=== PATIENT | male | born 1985 | race Caucasian/White ===

== ENCOUNTER 2018-09-16 14:28 | Emergency (ER) | payer OTHER ==
[~2018-09-16] VITALS: Ht 182.9 cm; Wt 81.6 kg
--- NOTE | 2018-09-16 14:40 | NUR ---
HERE FOR MED CLEARANCE FOR BOOKING, PT NOT SPEAKING AND NOT COOPERATIVE. PT BROUGHT IN BY [employer] OFFICERS. OFFICERS STS THAT FOUND PT " BANGING " HIS HEAD ON THE WALL. PT EYES OPEN, RR EVEN & UNLABORED, NO RESP DISTRESS NOTED. NAD NOTED @ THIS TIME. PT SEEN & EVAL'D BY MAURICIO JAY. OFFICERS @ BS & WILL CONT TO MONITOR.
[2018-09-16 14:56] LABS: BASOPHILS # (AUTO) 0.1 /CMM (0.0-0.2); BASOPHILS % (AUTO) 0.6 % (0.0-2.0); EOSINOPHILS % (AUTO) 0.3 % (0.0-6.0); HEMATOCRIT 41 % (39-51); LYMPHOCYTES # (AUTO) 1.4 /CMM (0.8-4.8); LYMPHOCYTES % (AUTO) 15.6 % (20.0-44.0); MEAN CORPUSCULAR HGB CONC 35 g/dl (31.0-36.0); MEAN CORPUSCULAR VOLUME 94 fL (80-96); MONOCYTES # (AUTO) 0.8 /CMM (0.1-1.30); NEUTROPHILS # (AUTO) 6.5 /CMM (1.8-8.9); NEUTROPHILS % (AUTO) 74.5 % (43.0-81.0); PLATELET COUNT (AUTO) 204 /CMM (150-450); RED BLOOD CELL COUNT(AUTO) 4.34 MIL/uL (4.5-6.0); WHITE BLOOD COUNT (AUTO) 8.7 K/uL (4.3-11.0)
[2018-09-16] MEDS ORDERED: OLANZAPINE 10 MG VIAL IM ONE ×3 (15:00→16:00)
[2018-09-16 15:07] LABS: CALCIUM, SERUM 9.9 mg/dL (8.5-10.1); CARBON DIOXIDE 25 mmol/L (21-32); CHLORIDE 105 mmol/L (98-107); CREATININE 1.2 mg/dL (0.6-1.3); GLUCOSE 96 mg/dL (74-106); POTASSIUM 3.5 mmol/L (3.5-5.1); SODIUM SERUM 139 mmol/L (136-145); UREA NITROGEN, BLOOD 16 mg/dL (7-18)
[2018-09-16 15:13] LABS: ALANINE AMINOTRANSFERASE 33 U/L (12-78); ALBUMIN 4.2 g/dL (3.4-5.0); ALCOHOL, BLOOD < 3 mg/dL (0-0); ALKALINE PHOSPHATASE 50 U/L (46-116); ASPARTATE AMINOTRANSFERASE 50 U/L (15-37); BILIRUBIN,DIRECT 0.3 mg/dL (0.0-0.2); BILIRUBIN,TOTAL 1.5 mg/dL (0.2-1.0); TOTAL PROTEIN, SERUM 7.2 g/dL (6.4-8.2)
[2018-09-16 15:15] LABS: ACETAMINOPHEN < 2 ug/ml (10-30); SALICYLATE < 2.8 mg/dL (2.8-20.0)
[2018-09-16 15:18] LABS: APPEARANCE,URINE Clear (CLEAR); BILIRUBIN,URINE Negative (NEGATIVE); BLOOD, URINE Negative Ery/uL (NEGATIVE); COLOR,URINE Yellow (YELLOW); KETONES,URINE Negative (NEGATIVE); LEUKOCYTE ESTERASE ,URINE Negative (NEGATIVE); NITRITE, URINE Negative (NEGATIVE); PROTEIN,URINE Negative (NEGATIVE); UGLUCOSE Negative (NEGATIVE); UROBILINOGEN,URINE 0.2 EU/dL (0.2)
--- NOTE | 2018-09-16 15:20 | NUR ---
MEDICATED PER MISTY, STAFF HOME THERAPY RN ORDER.
--- NOTE | 2018-09-16 15:24 | NUR ---
PT TO CT VIA [facility].
[2018-09-16] MEDS ORDERED: TDAP [DIPH/PERTUSSIS/TET] 0.5 ML VIAL IM ONE ×2 (15:30→17:00)
[2018-09-16] MEDS ORDERED: LORAZEPAM INJ 2 MG/ML VIAL IM ONE (16:00)
[2018-09-16] MEDS ORDERED: LORAZEPAM INJ 2 MG/ML VIAL ONE (17:00)
[2018-09-16] MEDS ORDERED: ETOMIDATE 2 MG/ML VIAL ONE (17:54)
[2018-09-16] MEDS ORDERED: LIDOCAINE 1%-EPI 1:100,000 50 ML VIAL IJ ONE (18:00)
[2018-09-16] MEDS ORDERED: ETOMIDATE 2 MG/ML VIAL IV ONE (18:00)
--- NOTE | 2018-09-16 18:04 | NUR ---
Moderate sedation at CT scan with Marsii Degrasse
--- NOTE | 2018-09-16 18:04 | NUR ---
Moderate sedation started at 1804 p.m., while at the CT scan; the patient remained monitored with a provider at bedside 1825 PM; moderate sedation ended. Moderate sedation: Start time 1804 p.m.; end time 1825 PM
--- NOTE | 2018-09-16 18:21 | NUR ---
PT BACK FROM CT & POST MOD SEDATION. PT ASLEEP EASILY WILL OPEN EYES & WILL GO BACK TO SLEEP. PLACED ON UTILITIES ESTIMATOR AND DRAFTER, SR. RR EVEN & UNLABORED. ON HI FLOW O2 NON REBREATHER, BI WELL. [employer] OFFICERS @ BS & WILL CONT TO MONITOR.
--- NOTE | 2018-09-16 19:30 | NUR ---
Patient discharged to home in stable condition. Written and verbal after care instructions given. Patient verbalizes understanding of instruction. IV removed. Catheter intact and site benign. Pressure and 4x4 applied to site. No bleeding noted.
[2018-09-16 19:31] VITALS: BP 150/74
== END 2018-09-16 19:33 | disposition home or self-care (01) ==
LOC: ER 14:30
DX: S01.112A Laceration without foreign body of left eyelid and periocular area, initial encounter (principal); X58.XXXA Exposure to other specified factors, initial encounter; Y93.89 Activity, other specified; Y92.89 Other specified places as the place of occurrence of the external cause; Y99.8 Other external cause status
CPT/HCPCS: 36415; 70450-TC; 72125-TC; 80048-TC; 80076-TC; 80305; 81000-TC; 85025-TC; 90715; A6402; G0480; J2060; J3490

== ENCOUNTER 2020-02-20 09:10 | Emergency (ER) | payer OTHER ==
[~2020-02-20] VITALS: Ht 182.9 cm; Wt 79.4 kg
--- NOTE | 2020-02-20 09:29 | NUR ---
TRACEY GILMORE CALLED FOR EVAL,PATIENT HOMELESS
[2020-02-20 09:42] LABS: BASOPHILS % (AUTO) 0.3 % (0.0-2.0); EOSINOPHILS % (AUTO) 0.2 % (0.0-6.0); HEMATOCRIT 43 % (39-51); HEMOGLOBIN 14.1 g/dL (13.5-17.5); LYMPHOCYTES # (AUTO) 1.2 /CMM (0.8-4.8); LYMPHOCYTES % (AUTO) 10.8 % (20.0-44.0); MEAN CORPUSCULAR HGB CONC 33 g/dl (31.0-36.0); MEAN CORPUSCULAR VOLUME 95 fL (80-96); MONOCYTES # (AUTO) 0.9 /CMM (0.1-1.30); MONOCYTES % (AUTO) 8.7 % (2.0-12.0); NEUTROPHILS # (AUTO) 8.5 /CMM (1.8-8.9); PLATELET COUNT (AUTO) 228 /CMM (150-450); RED BLOOD CELL COUNT(AUTO) 4.55 MIL/uL (4.5-6.0); WHITE BLOOD COUNT (AUTO) 10.6 K/uL (4.3-11.0)
[2020-02-20 09:57] LABS: CALCIUM, SERUM 9.6 mg/dL (8.5-10.1); CARBON DIOXIDE 30 mmol/L (21-32); CHLORIDE 107 mmol/L (98-107); CREATININE 1.3 mg/dL (0.6-1.3); GLUCOSE 94 mg/dL (74-106); POTASSIUM 3.2 mmol/L (3.5-5.1); SODIUM SERUM 146 mmol/L (136-145); UREA NITROGEN, BLOOD 25 mg/dL (7-18)
[2020-02-20 10:03] LABS: ACETAMINOPHEN 0 ug/ml (10-30); ALANINE AMINOTRANSFERASE 43 U/L (12-78); ALBUMIN 4.9 g/dL (3.4-5.0); ALCOHOL, BLOOD < 3 mg/dL (0-0); ALKALINE PHOSPHATASE 50 U/L (46-116); ASPARTATE AMINOTRANSFERASE 67 U/L (15-37); BILIRUBIN,DIRECT 0.2 mg/dL (0.0-0.2); SALICYLATE < 0.2 mg/dL (2.8-20.0)
[2020-02-20] MEDS ORDERED: LORAZEPAM 1 MG TABLET ONE (10:19)
[2020-02-20] MEDS: LORAZEPAM 1 MG TABLET PO ONE (10:20)
--- NOTE | 2020-02-20 10:21 | NUR ---
urine collected and sent to lab
[2020-02-20 10:38] LABS: APPEARANCE,URINE Clear (CLEAR); BILIRUBIN,URINE Negative (NEGATIVE); BLOOD, URINE Small Ery/uL (NEGATIVE); COLOR,URINE Yellow (YELLOW); KETONES,URINE 15 (NEGATIVE); LEUKOCYTE ESTERASE ,URINE Negative (NEGATIVE); NITRITE, URINE Negative (NEGATIVE); PH,URINE 5.5 (5.0-8.0); PROTEIN,URINE 30 mg/dl (NEGATIVE); UGLUCOSE Negative (NEGATIVE); UROBILINOGEN,URINE 0.2 EU/dL (0.2)
[2020-02-20 10:52] LABS: BACTERIA,URINE Few /HPF (None Seen); WBC,URINE 0-2 /HPF (0-3)
[2020-02-20 10:53] LABS: SQUAMOUS EPITHELIAL CELL,UR Rare /HPF (None Seen)
--- NOTE | 2020-02-20 15:10 | NUR ---
MOTHER'S CONTACT INFO [facility] [phone]
--- NOTE | 2020-02-20 15:57 | NUR ---
MANDO WEBB, AT THE BEDSIDE TO SPEAK TO PT.
--- NOTE | 2020-02-20 16:19 | NUR ---
Social service consult requested by MD for overdose. Per MD notes, pt is a 34-year-old man with a history of drug abuse brought in by EMS after streets for intoxication and agitation. He is unable to provide any meaningful history on his own but EMS state there were no signs of trauma, vomiting, or seizure activity. CENTRAL OFFICE REPAIRER met with the pt bedside. Pt is sober and able to provide information. Pt is alert and oriented x 3. Pt states, he resides at a sober living located in [facility]. Pt is not forthcoming with information. Pt states, he drank alcohol and that is why he is here. Pt declined to state if he is using drugs. Pt's UDS is positive for methamphetamines. Pt reports, he receives GR and Food stamps. Pt denies any psychiatric diagnosis or hospitalizations. Pt denies suicidal and homicidal ideations at this time. Pt has a history of attending a treatment program and states it was a long time ago. Pt was provided with a TAP card. Pt denies being homeless. No other social service needs are requested at this time. CENTRAL OFFICE REPAIRER provided pt with active listening and supportive counseling.
--- NOTE | 2020-02-20 16:31 | NUR ---
Patient discharged to home in stable condition. Written and verbal after care instructions given. Patient verbalizes understanding of instruction. PT AMBULATED OUT WITH A STEADY GAIT. PT DENIES BEING HOMELESS, BUT REC'D A TAP CARD TO GET HIM HOME. VSS
--- NOTE | 2020-02-20 16:31 | NUR ---
ASSUMED CARE OF PT FOR DISCHARGE PURPOSES ONLY.
[2020-02-20 16:34] VITALS: BP 138/74
== END 2020-02-20 16:34 | disposition home or self-care (01) ==
LOC: ER 09:11
DX: F15.10 Other stimulant abuse, uncomplicated (principal); R45.1 Restlessness and agitation
CPT/HCPCS: 36415; 80048; 80076; 80305; 80307; 80329; 81001; 85025; 99283; G0480; 81000-TC